=== PATIENT | male | born 1975 | race Two or more races ===

== ENCOUNTER → 2025-06-28 | Day surgery (SDC) | payer MEDICAID ==
[2025-06-23 14:16] LABS: Hematocrit 48.5 % (41.0-53.0); Hemoglobin 16.4 g/dL (13.5-17.5); Mean Corpuscular Hemoglobin 27.5 pg (28.0-32.0); Mean Corpuscular Volume 81.6 fL (80.0-100.0); Nucleated Red Blood Cells % 0.2 %
[2025-06-23 14:24] LABS: INR 1.13 (0.9-1.15); Partial Thromboplastin Time 25.1 SEC (24.5-34.5); Prothrombin Time 11.8 sec (9.3-11.8)
[2025-06-23 14:33] LABS: Alkaline Phosphatase 82 U/L (46-116); Anion Gap 8 (5-15); BUN/Creatinine Ratio 7.1 (10.0-20.0); Bilirubin, Total 0.9 mg/dL (0.2-1.0); Calcium 9.5 mg/dL (8.7-10.4); Carbon Dioxide 30 mmol/L (20-31); Chloride 101 mmol/L (98-107); Potassium 4.2 mmol/L (3.5-5.1); Sodium 139 mmol/L (136-145); Total Protein 7.6 g/dL (5.7-8.2)
[2025-06-23 14:35] LABS: Alanine Aminotransferase 65 U/L (7-40); Albumin 5.0 g/dL (3.2-4.8); Blood Urea Nitrogen 7 mg/dL (9-23); Glucose 161 mg/dL (74-106)
[~2025-06-28] VITALS: Ht 177.8 cm; Wt 108.4 kg
[~2025-06-28] MED LIST: GLIM4TAB42 PO; METF-371 PO; SEMA2INJ3 SC
[2025-06-28] MEDS: diphenhdrAMINE HCL 50 MG/1 ML VL ONE (12:43)
[2025-06-28] MEDS: fentaNYL CITRATE 100 MCG/2 ML VL ONE (12:43)
[2025-06-28] MEDS: MIDAZOLAM HCL 5 MG/ML-1ML VIAL ONE (12:43)
[2025-06-28 13:15] VITALS: PULSE 79; RESP 18; TEMP 97.7; O2SAT 97
--- NOTE | 2025-06-28 13:23 | DVHOP2 ---
Operative Report DATE OF OPERATION: 06/28/25 PROCEDURE: Diagnostic Colonoscopy. PREOPERATIVE INDICATION: The patient is a 49 -year-old male undergoing colonoscopy for colon cancer screening POSTOPERATIVE DIAGNOSES: 1. Trace internal hemorrhoids otherwise completely normal colonoscopy examination up to the cecum PROCEDURE PERFORMED BY: Solo Hsu M.D. SCOPE: Olympus videocolonoscope. ASA CLASS: 2. PREOPERATIVE MEDICATIONS: Versed 4 mg, Fentanyl 100 mcg, Benadryl 50 mg PROCEDURE IN DETAIL: After obtaining an informed consent, the patient was placed on left lateral decubitus position. He was then sedated with the above medications. A rectal examination was performed that was normal. The colonoscope was then passed through the anus into the rectosigmoid and through the descending, transverse, and ascending colon up to the cecum with visualization of the appendiceal orifice, base of the cecum and the ileoce nimco valve. The colonoscope was then withdrawn. Polyps or masses were seen. There was no colitis or diverticular disease. On retroflexion and straight on view patient had trace internal hemorrhoids The patient tolerated the procedure well without difficulty. WITHDRAWAL TIME: 7 minutes QUALITY OF THE PREP: [place] Bowel Prep score: 9. COMPLICATIONS : None SPECIMENS: None DISPOSITION: Stable D/C to home PLAN: 1. Repeat colonoscopy in 10 years 2. Resume GI soft diet advance as tolerated 3. Outpatient follow up with me in 4-6 weeks to review results and discuss further management SOLO HSU MD Jun 28, 2025 13:23
[2025-06-28 13:30] VITALS: BP 134/92; PULSE 78; RESP 20; O2SAT 96
== END | disposition home or self-care (01) ==
LOC: GI 10:47
PROVIDERS: ATTEND Internal Medicine Gastroenterology
DX: Z12.11 Encounter for screening for malignant neoplasm of colon (principal); K64.8 Other hemorrhoids; R16.2 Hepatomegaly with splenomegaly, not elsewhere classified; E11.9 Type 2 diabetes mellitus without complications; E78.00 Pure hypercholesterolemia, unspecified; I10 Essential (primary) hypertension; Z98.890 Other specified postprocedural states; Z79.899 Other long term (current) drug therapy
CPT/HCPCS: 36415; 45378; 80053; 82962; 85025; 85610; 85730; J1200; J2250; J3010